=== PATIENT | male | born 1960 | race Caucasian/White ===

== ENCOUNTER 2016-06-08 09:13 | Inpatient (IN) | payer OTHER ==
[~2016-06-08] VITALS: Ht 188 cm; Wt 99.0 kg
[2016-06-08 09:14] VITALS: BP 168/98; PULSE 90; RESP 18; TEMP 97.8; O2SAT 93
[2016-06-08 09:40] LABS: BLOOD GAS BASE EXCESS -0.7 mmol/L (-2-2); BLOOD GAS CARBOXYHEMOGLOBIN 2.4 % (0-4); BLOOD GAS HCO3 23 mmol/L (22-26); BLOOD GAS METHEMOGLOBIN 1.8 % (0-2); BLOOD GAS O2 HGB SATURATION 92 % (90-100); BLOOD GAS OXYGEN CONTENT 21.6 Vol % (12.0-20.0); BLOOD GAS PCO2 35 mmHg (38-42); BLOOD GAS PO2 75 mmHG (61-120); BLOOD GAS TOTAL HGB 16.7 G/DL (12.0-16.0); CRITICAL VALUE NO; TEMP CORR TO 98.6
[2016-06-08 09:41] LABS: DRAW SITE RT RADIAL; NUMBER OF ARTERIAL PUNCTURES 1; OXYGEN DEVICE ROOM AIR; STAT YES; ULNAR PULSE PRESENT
[2016-06-08 09:48] LABS: AUTOMATED NEUTROPHIL # 11.1 TH/MM3 (1.8-7.7); BASOPHIL # 0.1 TH/MM3 (0-0.2); BASOPHIL % 0.4 % (0.0-2.0); EOSINOPHIL % 0.1 % (0.0-4.0); HEMATOCRIT 47.1 % (35.0-46.0); HEMO FLAGS DIFF FINAL; LYMPH % 16.2 % (9.0-44.0); LYMPHOCYTE # 2.3 TH/MM3 (1.0-4.8); MEAN CELL VOLUME 85.4 FL (80.0-100.0); MEAN CORPUSCULAR HEMOGLOBIN 28.7 PG (27.0-34.0); MEAN CORPUSCULAR HGB CONC 33.6 % (32.0-36.0); MONO % 6.6 % (0.0-8.0); NEUT % 76.7 % (16.0-70.0); PLATELET COUNT 318 TH/MM3 (150-450); RED BLOOD COUNT 5.52 MIL/MM3 (4.00-5.30); RED CELL DISTRIBUTION WIDTH 13.1 % (11.6-17.2); WHITE BLOOD COUNT 14.5 TH/MM3 (4.0-11.0)
[2016-06-08 09:51] LABS: BLOOD, URINE TRACE (NEG); COMMENT (UR) CULT NOT INDICATED; CULTURE IF INDICATED CULT NOT INDICATED; GLUCOSE,URINE NEG (NEG); HYALINE CAST, URINE 1 /lpf (RARE); KETONE, URINE 10 mg/dL (NEG); MUCUS URINE FEW /lpf (OCC); NITRITE,URINE NEG (NEG); PH, URINE 6.5 (5.0-8.5); URINE COLOR YELLOW (YELLW/STRAW)
[2016-06-08 10:12] LABS: BICARBONATE 28.1 MEQ/L (21.0-32.0); POTASSIUM 3.9 MEQ/L (3.5-5.1)
--- NOTE | 2016-06-08 13:14 | PD ---
HPI . suicide attempt and anxiety Chief Complaint: Psychiatric Symptoms Time Seen by Provider: 12:45 Travel History International Travel<30 days: No Contact w/Intl Traveler<30days: No Traveled to known affect area: No History of Present Illness HPI 56-year-old male with no significant past medical history here with severe bout of anxiety. Patient says in the past he has had mild anxiety but never as much as he has now. 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 Patient was somewhat overwhelmed as he felt he may be letting students down and the anxiety became overwhelming. He reports that he did not know how to use software, teach classes, or handle the class load. His anxiety was so overwhelming that patient decided he would attempt suicide by leaving his car running and stetting it up to make it look like he was charging his cell phone and fell asleep in his vehicle. Fortunately , in his suicide attempt, he decided that it was not worth taking his life and decided to seek medical help. At the time of examination patient denies any chest pain, shortness of breath, diaphoresis, nausea vomiting, abdominal pain, joint pain or any fatigue. PFSH Past Medical History Medical History: Denies Significant Hx Diabetes: No Patient Takes Glucophage: No Diminished Hearing: No Tetanus Vaccination: Unknown ?: Not Past Surgical History Surgical History: No Previous Surgery Social History Alcohol Use: Yes (OCCASIONAL) Tobacco Use: No Substance Use: Yes Allergies-Medications (Allergen,Severity, Reaction): Coded Allergies: No Known Allergies (Unverified , 06/08/16) Reported Meds & Prescriptions Reported Meds & Active Scripts Active No Active Prescriptions or Reported Medications Review of Systems General / Constitutional: No: Fever Eyes: No: Visual changes HENT: No: Headaches Cardiovascular: No: Chest Pain or Discomfort Respiratory: No: Shortness of Breath Gastrointestinal: No: Abdominal Pain Genitourinary: No: Dysuria Musculoskeletal: No: Pain Skin: No Rash Neurologic: No: Weakness Psychiatric: Positive: Anxiety, Suicidal Ideations, No: Depression Endocrine: No: Polydipsia Hematologic/Lymphatic: No: Easy Bruising Physical Exam Narrative GENERAL: AAO x 3, no acute distress, Well-nourished, well-developed patient. moderately anxious. SKIN: Warm and dry. No visible rashes or bruising. HEAD: Normocephalic and atraumatic. EYES: No scleral icterus. No injection or drainage. EOM intact ENT: No nasal drainage noted. Mucous membranes pink. Airway patent. NECK: Supple, trachea midline. No JVD. CARDIOVASCULAR: Regular rate and rhythm without murmurs, gallops, or rubs. RESPIRATORY: Breath sounds equal bilaterally. No accessory muscle use. No rhonchi or rales. GASTROINTESTINAL: Abdomen soft, non-tender, nondistended. EXTREMITIES: No cyanosis or edema. BACK: Nontender without obvious deformity. No CVA tenderness. PSYCH: AAO x 3, very anxious, coherent speech Data Data Last Documented VS Vital Signs Date Time Temp Pulse Resp B/P Pulse Ox O2 Delivery O2 Flow Rate FiO2 06/08/16 09:14 97.8 90 18 168/98 93 Room Air Orders Complete Blood Count With Diff (06/08/16 09:19) Basic Metabolic Panel (Bmp) (06/08/16 09:19) Urinalysis - C+S If Indicated (06/08/16 09:19) Arterial Blood Gas (Abg) (06/08/16 09:24) Drug Screen, Random Urine (06/08/16 09:24) Psych Screen (06/08/16 11:37) Labs Laboratory Tests Test 06/08/16 06/08/16 08:30 09:35 Urine Color YELLOW Urine Turbidity CLEAR Urine pH 6.5 Urine Specific [place] 1.036 Urine Protein 30 mg/dL Urine Glucose (UA) NEG mg/dL Urine Ketones 10 mg/dL Urine Occult Blood TRACE Urine Nitrite NEG Urine Bilirubin SMALL Urine Urobilinogen 4.0 MG/DL Urine Leukocyte Esterase NEG Urine RBC 2 /hpf Urine WBC 1 /hpf Urine Hyaline Casts 1 /lpf Urine Mucus FEW /lpf Microscopic Urinalysis Comment CULT NOT INDICATED White Blood Count 14.5 TH/MM3 Red Blood Count 5.52 MIL/MM3 Hemoglobin 15.8 GM/DL Hematocrit 47.1 % Mean Corpuscular Volume 85.4 FL Mean Corpuscular Hemoglobin 28.7 PG Mean Corpuscular Hemoglobin 33.6 % Concent Red Cell Distribution Width 13.1 % Platelet Count 318 TH/MM3 Mean Platelet Volume 8.3 FL Neutrophils (%) (Auto) 76.7 % Lymphocytes (%) (Auto) 16.2 % Monocytes (%) (Auto) 6.6 % Eosinophils (%) (Auto) 0.1 % Basophils (%) (Auto) 0.4 % Neutrophils # (Auto) 11.1 TH/MM3 Lymphocytes # (Auto) 2.3 TH/MM3 Monocytes # (Auto) 1.0 TH/MM3 Eosinophils # (Auto) 0.0 TH/MM3 Basophils # (Auto) 0.1 TH/MM3 CBC Comment DIFF FINAL Differential Comment Blood Gas Puncture Site RT RADIAL Blood Gas Patient Temperature 98.6 Blood Gas HCO3 23 mmol/L Blood Gas Base Excess -0.7 mmol/L Blood Gas Oxygen Saturation 92 % Arterial Blood pH 7.44 Arterial Blood Partial 35 mmHg Pressure CO2 Arterial Blood Partial 75 mmHG Pressure O2 Arterial Blood Oxygen Content 21.6 Vol % Arterial Blood 2.4 % Carboxyhemoglobin Arterial Blood Methemoglobin 1.8 % Blood Gas Hemoglobin 16.7 G/DL Oxygen Delivery Device ROOM AIR Sodium Level 139 MEQ/L Potassium Level 3.9 MEQ/L Chloride Level 104 MEQ/L Carbon Dioxide Level 28.1 MEQ/L Anion Gap 7 MEQ/L Blood Urea Nitrogen 11 MG/DL Creatinine 1.47 MG/DL Estimat Glomerular Filtration 37 ML/MIN Rate Random Glucose 101 MG/DL Calcium Level 9.1 MG/DL MDM Medical Decision Making Medical Screen Exam Complete: Yes Emergency Medical Condition: Yes Medical Record Reviewed: Yes Differential Diagnosis suicide attempt, suicide ideation, JESE, panic attack, Narrative Course 56-year-old male with no significant past medical history here with severe bout of anxiety. Patient says in the past he has had mild anxiety but never as much as he has now. 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 Patient was somewhat overwhelmed as he felt he may be letting students down and the anxiety became overwhelming. He reports that he did not know how to use software, teach classes, or handle the class load. His anxiety was so overwhelming that patient decided he would attempt suicide by leaving his car running and stetting it up to make it look like he was charging his cell phone and fell asleep in his vehicle. Fortunately , in his suicide attempt, he decided that it was not worth taking his life and decided to seek medical help. At the time of examination patient denies any chest pain, shortness of breath, diaphoresis, nausea vomiting, abdominal pain, joint pain or any fatigue. Seen and examined. Case discussed with Dr. Mccracken. Recommend further psychiatric care. Labs are unremarkable. Exam is unremarkable. No further medical care anticipated. Diagnosis Primary Impression: Suicide attempt Additional Impression: Anxiety Scripts No Active Prescriptions or Reported Meds Condition: Stable Norma Goncalves Jun 08, 2016 13:14
[2016-06-08 16:12] VITALS: BP 144/79; PULSE 100; RESP 17; O2SAT 97
--- NOTE | 2016-06-08 17:39 | PD ---
History of Present Illness Chief Complaint: Psychiatric Symptoms Time Seen by Provider: 17:15 Travel History International Travel<30 Days: No Contact w/Intl Traveler<30days: No Known affected area: No Legal Status Legal Status: Moore Act Moore Act Signed By: Oscar Act Comment: CASSIE Heredia History of Present Illness: History of Present Illness H 56-year-old male with no previous psychiatric history presents to ED with complaint of anxiety. 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 Patient was somewhat overwhelmed as he felt he may be letting students down and the anxiety became overwhelming.The patient decided he would attempt suicide by leaving his car running and stetting it up to make it look like he was charging his cell phone and fell asleep in his vehicle. He then had a change of mind and called for medical attention. Seen. record reviewed. Patient is alert and oriented. appears depressed. he is requesting to be discharged as he wants to be able to use his computer. He still endorses feeling depressed as well as reports suicidal ideation. He has never received treatment for his anxiety or depression. At this time the patient presents a risk to self PFSH Past Medical History Medical History: Denies Significant Hx Diabetes: No Patient Takes Glucophage: No Diminished Hearing: No Tetanus Vaccination: Unknown ?: Not Past Surgical History Surgical History: No Previous Surgery Psychiatric History Psychiatric History Hx Psychiatric Treatment: pT DENIED History of Inpatient Treatment: No Guns or firearms in home: No Social History single male. Lives by self Hx Alcohol Use: Yes (OCCASIONAL) Hx Tobacco Use: No Hx Substance Use: Yes Substance Use Type: Alcohol, Marijuana Other Substances Used: oCCASIONALLY Hx of Substance Use Treatment: No Allergies-Medications (Allergen,Severity, Reaction): Coded Allergies: No Known Allergies (Unverified , 06/08/16) Reported Meds & Prescriptions Reported Meds & Active Scripts Active No Active Prescriptions or Reported Medications Review of Systems Except as stated in HPI: all other systems reviewed are Neg Psychiatric: COMPLAINS OF: Anxiety, Depression, Suicidal Ideation Exam Alert: Yes [place]: Person (ox4) Mood: Anxious, Depressed Speech: Clear, Logical Eye Contact: Normal Memory Intact: Comment (no impairmetn) Hallucinations: Other (negative) Suicidal: Ideation (vague at this time) Homicidal: Ideation (deneis) Insight/Judgement poor. poor MDM Medical Decision Making Medical Record Reviewed: Yes Assessment/Plan Covert to BA as patient is not willing to accept hospitalization at this time. I have no previous history and I am unable to obtain collateral information to assure this patient is safe to discharge. . Recommend admission for further evaluation, initiation of tx. and to maintain safety. Orders Complete Blood Count With Diff (06/08/16 09:19) Basic Metabolic Panel (Bmp) (06/08/16 09:19) Urinalysis - C+S If Indicated (06/08/16 09:19) Arterial Blood Gas (Abg) (06/08/16 09:24) Drug Screen, Random Urine (06/08/16 09:24) Psych Screen (06/08/16 11:37) Admit Order (Ed Use Only) (06/08/16 ) Admit To Inpatient Psych (06/08/16 ) Code Status (06/08/16 17:33) Vital Signs (Adult) SKY.Q12H.E (06/08/16 17:33) Activity Oob Ad Alice (06/08/16 17:33) Level Of Observation (Psych) (06/08/16 17:33) Acetaminophen (Tylenol) (06/08/16 17:45) Magnesium Hydroxide Liq (Milk Of Magnesi (06/08/16 17:45) Al-Mag Hy-Si 40-40-4 Mg/Ml Liq (Mag-Al P (06/08/16 17:45) Basic Metabolic Panel (Bmp) (06/09/16 06:00) Lipid Profile (06/09/16 06:00) Hemoglobin (Hgb) A1c (06/09/16 06:00) Results Vital Signs Date Time Temp Pulse Resp B/P Pulse Ox O2 Delivery O2 Flow Rate FiO2 06/08/16 16:12 100 17 144/79 97 06/08/16 09:14 97.8 90 18 168/98 93 Room Air Laboratory Tests Test 06/08/16 06/08/16 08:30 09:35 Urine Color YELLOW Urine Turbidity CLEAR Urine pH 6.5 Urine Specific [place] 1.036 Urine Protein 30 Urine Glucose (UA) NEG Urine Ketones 10 Urine Occult Blood TRACE Urine Nitrite NEG Urine Bilirubin SMALL Urine Urobilinogen 4.0 Urine Leukocyte Esterase NEG Urine RBC 2 Urine WBC 1 Urine Hyaline Casts 1 Urine Mucus FEW Microscopic Urinalysis Comment CULT NOT INDICATED White Blood Count 14.5 Red Blood Count 5.52 Hemoglobin 15.8 Hematocrit 47.1 Mean Corpuscular Volume 85.4 Mean Corpuscular Hemoglobin 28.7 Mean Corpuscular Hemoglobin 33.6 Concent Red Cell Distribution Width 13.1 Platelet Count 318 Mean Platelet Volume 8.3 Neutrophils (%) (Auto) 76.7 Lymphocytes (%) (Auto) 16.2 Monocytes (%) (Auto) 6.6 Eosinophils (%) (Auto) 0.1 Basophils (%) (Auto) 0.4 Neutrophils # (Auto) 11.1 Lymphocytes # (Auto) 2.3 Monocytes # (Auto) 1.0 Eosinophils # (Auto) 0.0 Basophils # (Auto) 0.1 CBC Comment DIFF FINAL Differential Comment Blood Gas Puncture Site RT RADIAL Blood Gas Patient Temperature 98.6 Blood Gas HCO3 23 Blood Gas Base Excess -0.7 Blood Gas Oxygen Saturation 92 Arterial Blood pH 7.44 Arterial Blood Partial 35 Pressure CO2 Arterial Blood Partial 75 Pressure O2 Arterial Blood Oxygen Content 21.6 Arterial Blood 2.4 Carboxyhemoglobin Arterial Blood Methemoglobin 1.8 Blood Gas Hemoglobin 16.7 Oxygen Delivery Device ROOM AIR Sodium Level 139 Potassium Level 3.9 Chloride Level 104 Carbon Dioxide Level 28.1 Anion Gap 7 Blood Urea Nitrogen 11 Creatinine 1.47 Estimat Glomerular Filtration 37 Rate Random Glucose 101 Calcium Level 9.1 Diagnosis Primary Impression: Suicide attempt Additional Impressions: Anxiety Marijuana abuse, continuous Admitting Information Admitting Physician Requests: Admit (Dr. Olivas) Prescriptions No Active Prescriptions or Reported Meds Condition: Stable Problem Qualifiers Alexandra Wade Jun 08, 2016 17:39
[2016-06-08] MEDS ORDERED: ACETAMINOPHEN 325 MG TAB PO PRN (17:45)
[2016-06-08] MEDS ORDERED: MAGNESIUM HYDROXIDE SUSP 30 ML CUP PO PRN (17:45)
[2016-06-08] MEDS ORDERED: ALUMINUM/MAGNESIUM/SIMETH 30 ML CUP PO PRN (17:45)
[2016-06-08 18:29] VITALS: BP 163/89; PULSE 90; RESP 17; TEMP 98; O2SAT 96
[2016-06-08 19:40] VITALS: BP 139/87; PULSE 76; RESP 18; O2SAT 97
[2016-06-08 20:05] VITALS: BP 163/95; PULSE 85; RESP 18; TEMP 98.7; O2SAT 95
[2016-06-09 06:07] LABS: AMPHETAMINE, URINE NEG (NEG); BARBITURATES, URINE NEG (NEG); COCAINE, URINE NEG (NEG)
[2016-06-09 06:13] VITALS: BP 143/86; PULSE 90; RESP 18; TEMP 97.7; O2SAT 97
[2016-06-09 09:06] LABS: ANION GAP 10 MEQ/L (5-15); BICARBONATE 23.7 MEQ/L (21.0-32.0); BLOOD UREA NITROGEN 13 MG/DL (7-18); CHLORIDE 105 MEQ/L (98-107); GLOMERULAR FILTRATION RATE 54 ML/MIN (>89); POTASSIUM 4.2 MEQ/L (3.5-5.1); SODIUM (NA) 139 MEQ/L (136-145)
[2016-06-09 09:08] LABS: HDL CHOLESTEROL 48.8 MG/DL (40.0-60.0); LDL CHOLESTEROL 135 MG/DL (0-99)
[2016-06-09] MEDS ORDERED: hydrOXYzine HCL 50 MG TAB PO PRN (11:00)
--- NOTE | 2016-06-09 11:16 | HHI.HP ---
Provisional Diagnosis Admission Date Jun 08, 2016 at 17:37 [place] I. Major depressive disorder severe recurrent without psychosis F 33.2, marijuana abuse F 12.10 Certification of Person's Competence To Provide Express and Informed Consent I have personally examined Ashkan Magallon , a person being served at [facility] on, Jun 09, 2016 11:00. Express and informed consent means consent voluntarily given in writing, by a competent person, after sufficient explanation and disclosure of the subject matter involved to enable the person to make a knowing and willful decision without any element of force, fraud, deceit, duress, or other form of constraint or coercion. This person is 18 years of age or older, is not now known to be incompetent to consent to treatment with a guardian advocate, and does not have a health care surrogate or proxy currently making medical treatment decisions. I have found this person to be one of the following: [x] Competent to provide express and informed consent, as defined above, for voluntary admission to this facility and is competent to provide express and informed consent for treatment. He/she has the consistent capacity to make well reasoned, willful, and knowing decisions concerning his or her medical or mental health treatment. The person fully and consistently understands the purpose of the admission for examination/placement and is fully capable of personally exercising all rights assured under [place] Incompetent to provide express and informed consent to voluntary admission, and this is incompetent to provide express and informed consent to treatment. The person must be transferred to involuntary status and a petition for a guardian advocate filed with the Circuit Court. [] Refusing to provide express and informed consent to voluntary admission but is competent to provide express and informed consent for treatment. The person must be discharged or transferred to involuntary status. Form shall be completed within 24 hours of a person's arrival at the receiving facility and filed in the clinical record of each person: 1. Admitted on a voluntary basis 2. Permitted to provide express and informed consent to his/her own treatment 3. Allowed to transfer from involuntary to voluntary status 4. Prior to permitting a person to consent to his or her own treatment after having been previously found incompetent to consent to treatment. History of Present Illness Capacity: Has Capacity HPI Patient is a 56 to white male who comes to the emergency department [facility] a history of suicide attempt by carbon monoxide poisoning was Moore acted by our psychiatric screener Alexandra MATTHEWS dated June 08 5 PM stating depressive disorder adjustment of depressed mood patient turned [place] on a garage wanted to "go to sleep and not wake up" patient seen screened in ED urine toxicology positive for marijuana. At the present time patient sitting quietly in his room family practice resident Nila and nurse Leatha present throughout session. 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 He has become more and more depressed with this he describes both significant initial and mid insomnia, a.m. anergy, decreased appetite with weight loss sad mood, decreased concentration and attention some increased irritability. He does deny voices or visions with this he does acknowledges suicide attempt with this. He does acknowledge chronic continuous use of marijuana starting as a teenager stating it helps him remain calm to changes anxiety the not is limited to 2 or 3 small hits per day. Though he does have some insight that this is not a room treatment for his problems. Patient does give a history also of past significant alcohol use stating he has had 2 or 3 DUIs 20+ years ago denying detox or rehabilitation or frequent alcohol use at this time. He does acknowledge multiple prior suicide attempts initially at about 13 years of age when he brought rubbing alcohol to school with attempts to mix it in his milk. He does deny any prior psychiatric hospitalizations his psychotropic medications he does deny any voices or visions with this. He does acknowledges continued suicidality at this time. Patient denies any history mental illness with his family of origin though is some alcohol use with his family his father is alive mother . He has sibship of 3 he is the middle child with a brother and a sister. He does have appears to be of okay relationship with them. He also denies any physical or sexual abuse as a child or an adult. Denies any significant medical issues. At the present time patient does meet criteria for acute psychiatric hospitalization. I feel he does have capacity to participate in his treatment and to participate in his admission thus I will lift the Moore act allow the patient to sign voluntary. We did discuss medications we'll start the gentleman on Remeron 15 mg at at bedtime and Abilify 10 mg in the morning. Hopeless be fairly short stay and he can return to his home follow-up with [facility] outpatient psychiatric treatment Review of Systems Except as stated in HPI: all other systems reviewed are Neg Past Psych History Psychological trauma history Patient denies any physical or sexual abuse Violence risk - others (6 mos) Low Violence risk - self (6 mos) Patient attempted suicide with this admission, long history of very suicide attempts over his life since 13 years of age Substance Abuse History Drugs/Alcohol past 12 months Patient chronic marijuana user, a past history of moderate plus alcohol use rare use now Past Family Social History Coded Allergies: No Known Allergies (Unverified , 06/08/16) Past Medical History Patient denies any significant medical history No Active Prescriptions or Reported Meds Current Medications Medications (Trade) Dose Ordered Sig/Faustina Route Start Time Stop Time Status Last Admin (Tylenol) 650 mg Q4H PRN PO 06/08/16 17:45 (Milk Of Magnesia Liq) 30 ml DAILY PRN PO 06/08/16 17:45 (Mag-Al Plus Susp Liq) 30 ml Q6H PRN PO 06/08/16 17:45 (Benadryl) 50 mg HS PRN PO 06/09/16 11:00 UNV (Atarax) 50 mg Q6H PRN PO 06/09/16 11:00 UNV Family History No history mental illness in the family that he said his parents did use alcohol Social History Patient lives alone is has no children as a pet cat Patient's Strengths (min. 2) Patient verbal cooperative it waxes health care Physical Exam Patient seen screened in ED exam reviewed and agreed with vital signs blood pressure 143/86 pulse 90 respirations 18 Vital Signs Vital Signs Date Time Temp Pulse Resp B/P Pulse Ox O2 Delivery O2 Flow Rate FiO2 06/09/16 06:13 97.7 90 18 143/86 97 06/08/16 19:40 Room Air Mental Status Examination Alert oriented white male appears stated age clean neatly dressed sitting calmly in his room with poor to fair eye contact staff present as mentioned above Appearance Clean neatly Speech: Unremarkable Orientation: x3 Memory: Unremarkable Thought Process: Logical, Organized Thought Content: Unremarkable Hallucination Type: None Attention and Concentration: Good Suicidal Ideation: Yes Previous Suicide Attempts: Yes Homicidal Ideation: No Previous Homicide Attempts: No Insight: Fair Judgement: Poor Affect: Other (decreased range and intensity) Mood: Sad (and restricted) Motor Activity: Normal gait Assessment & Plan Problem List: (1) Major depressive disorder, recurrent severe without psychotic features ICD Code: F33.2 (2) Marijuana abuse, continuous ICD Code: F12.10 Assessment & Plan Estimated LOS 5-7: days patient remains depressed and vague suicidal ideation however he does have the capacity to sign voluntary thus I'll lift the Moore act allow her sign voluntary will continue him on close observation, will start him on Remeron 15 mg at at bedtime Abilify 10 mg in the morning Discharge Planning To be determined Request HC Surrog/Guard Advoc?: No Juwan Olivas MD Jun 09, 2016 11:16
[2016-06-09] MEDS: ARIPiprazole 10 MG TAB PO SCH (12:43)
[2016-06-09 16:01] LABS: HEMOGLOBIN A1a 1.1 %; HEMOGLOBIN A1b 1.5 %; HEMOGLOBIN Ao 85.7 %; HEMOGLOBIN LA1C 1.9 %; HEMOGLOBIN P3 3.7 %
[2016-06-09 18:48] VITALS: BP 143/86; PULSE 90; RESP 17; TEMP 97.5
[2016-06-09] MEDS: MIRTAZAPINE 15 MG TAB PO SCH (21:00)
[2016-06-10 05:06] VITALS: BP 132/88; PULSE 100; RESP 18; TEMP 99.2
[2016-06-10] MEDS: ARIPiprazole 10 MG TAB PO SCH (08:23)
--- NOTE | 2016-06-10 09:33 | HHI.PYPN ---
Subjective Remarks Patient seen in [place] with nurse Lele, chart review, patient states sleep somewhat better last night them prior, continues depressed. Though it this time he does somewhat obtusely denies suicidality. There is still some irritability and some indecisiveness related to his employment and return to that environment. Patient compliant medications. For now continue treatment Review of Systems Except as stated in HPI: all other systems reviewed are Neg Objective Alert: Yes [place]: Person (ox4) Mood: Anxious, Depressed Affect: Restricted Memory Intact: Comment (no impairmetn) Hallucinations: Other (negative) Delusions: No Delusion Type: Other (mildly vigilant) Suicidal: Ideation (vague at this time) Homicidal: Ideation (deneis) Insight/Judgement Poor Vitals/IOs Vital Signs Date Time Temp Pulse Resp B/P Pulse Ox O2 Delivery O2 Flow Rate FiO2 06/10/16 05:06 99.2 100 18 132/88 06/09/16 06:13 97 06/08/16 19:40 Room Air Assessment & Plan Problem List: (1) Major depressive disorder, recurrent severe without psychotic features ICD Code: F33.2 (2) Marijuana abuse, continuous ICD Code: F12.10 Assessment & Plan Estimated LOS: days patient continues depressed though today somewhat denying suicidality, compliant medications. For now continue treatment Justification for Cont. Inpt. At this time patient was really decompensate if placed in a lower level of care Discharge Planning To be determined Request HC Surrog/Guard Advoc?: No Juwan Olivas MD Jun 10, 2016 09:33
[2016-06-10 18:20] VITALS: BP 144/78; PULSE 95; RESP 19; TEMP 98.3; O2SAT 99
[2016-06-10] MEDS: MIRTAZAPINE 15 MG TAB PO SCH (21:16)
[2016-06-10] MEDS: diphenhydrAMINE HCL 50 MG CAP PO PRN (21:41)
[2016-06-11 05:01] VITALS: BP 139/93; PULSE 84; RESP 18; TEMP 98.3; O2SAT 96
[2016-06-11] MEDS: ARIPiprazole 10 MG TAB PO SCH (09:01)
--- NOTE | 2016-06-11 09:54 | HHI.PYPN ---
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 Patient calm cooperative stating the "dark cloud" that he felt yesterday is slowly lifting. He said he slept better his appetite is better. He does denies suicidality at this time. There is still some hesitation a question about his ability to do his job or his desire to do his job. For now continue treatment no change consider discharge first part of next week patient continues to show improvement Review of Systems Except as stated in HPI: all other systems reviewed are Neg Objective Alert: Yes [place]: Person (ox4) Mood: Anxious, Depressed Affect: Restricted Memory Intact: Comment (no impairmetn) Hallucinations: Other (negative) Delusions: No Delusion Type: Other (mildly vigilant) Suicidal: Ideation (vague at this time) Homicidal: Ideation (deneis) Insight/Judgement Poor Vitals/IOs Vital Signs Date Time Temp Pulse Resp B/P Pulse Ox O2 Delivery O2 Flow Rate FiO2 06/11/16 05:01 98.3 84 18 139/93 96 06/08/16 19:40 Room Air Assessment & Plan Problem List: (1) Major depressive disorder, recurrent severe without psychotic features ICD Code: F33.2 (2) Marijuana abuse, continuous ICD Code: F12.10 Assessment & Plan Estimated LOS: days patient's depression is slowly lifting, suicidality his diminished. Compliant with medications. Patient now starting to process his work situation issues. For now continue treatment Justification for Cont. Inpt. With this time patient will decompensate the placed in a lower level of care Discharge Planning To be determined Request HC Surrog/Guard Advoc?: No Juwan Olivas MD Jun 11, 2016 09:54
[2016-06-11 18:43] VITALS: BP 156/88; PULSE 108; RESP 18; TEMP 97.7; O2SAT 95
[2016-06-11] MEDS: MIRTAZAPINE 15 MG TAB PO SCH (21:04)
[2016-06-11] MEDS: diphenhydrAMINE HCL 50 MG CAP PO PRN (22:33)
[2016-06-12 05:47] VITALS: BP 125/79; PULSE 92; RESP 16; TEMP 97; O2SAT 96
[2016-06-12] MEDS: ARIPiprazole 10 MG TAB PO SCH (09:27)
--- NOTE | 2016-06-12 15:10 | HHI.PYPN ---
Subjective Remarks Pt seen and discussed with staff. He reports that mood is improved. No SI/HI. He is tolerating medications without side effects. He is attending therapeutic activities in milieu. No psychosis. Objective Alert: Yes [place]: Person (ox4) Mood: Calm Affect: Restricted Memory Intact: Comment (no impairmetn) Hallucinations: Other (negative) Delusions: No Delusion Type: Other (mildly vigilant) Suicidal: Ideation (denies) Homicidal: Ideation (denies) Insight/Judgement fair Vitals/IOs Vital Signs Date Time Temp Pulse Resp B/P Pulse Ox O2 Delivery O2 Flow Rate FiO2 06/12/16 05:47 97.0 92 16 125/79 96 06/08/16 19:40 Room Air Intake and Output 06/11/16 06/11/16 06/12/16 08:00 16:00 00:00 Intake Total 480 ml Balance 480 ml Assessment & Plan Problem List: (1) Major depressive disorder, recurrent severe without psychotic features ICD Code: F33.2 (2) Marijuana abuse, continuous ICD Code: F12.10 Assessment & Plan Continue current tx plan as pt improving. Estimated LOS: days Justification for Cont. Inpt. monitoring for impairments in safety Request HC Surrog/Guard Advoc?: Марина Quiroga MD Jun 12, 2016 15:10
[2016-06-12 18:43] VITALS: BP 144/92; PULSE 105; RESP 17; TEMP 98.4; O2SAT 96
[2016-06-12] MEDS: MIRTAZAPINE 15 MG TAB PO SCH (21:08)
[2016-06-12] MEDS: diphenhydrAMINE HCL 50 MG CAP PO PRN (23:56)
[2016-06-13 05:24] VITALS: BP 119/77; PULSE 82; RESP 16; TEMP 97
[2016-06-13] MEDS: ARIPiprazole 10 MG TAB PO SCH (09:16)
--- NOTE | 2016-06-13 15:52 | HHI.PYPN ---
Subjective Remarks Pt seen and discussed with staff. He reports that mood continues to improve and he denies SI/HI. He is compliant with medications and tolerating them without side effects. He has been participating in all unit activities. Objective Alert: Yes [place]: Person, Place, Date, Situation Mood: Calm Affect: Restricted Memory Intact: Comment (no impairmetn) Hallucinations: Other (negative) Delusions: No Delusion Type: Other (mildly vigilant) Suicidal: Ideation (denies) Homicidal: Ideation (denies) Insight/Judgement good Vitals/IOs Vital Signs Date Time Temp Pulse Resp B/P Pulse Ox O2 Delivery O2 Flow Rate FiO2 06/13/16 05:24 97.0 82 16 119/77 06/12/16 18:43 96 Assessment & Plan Problem List: (1) Major depressive disorder, recurrent severe without psychotic features ICD Code: F33.2 (2) Marijuana abuse, continuous ICD Code: F12.10 Assessment & Plan Continue current tx plan. Pt improving. Pt will need referral to psychiatrist upon discharge as does not have current provider. Estimated LOS: days Justification for Cont. Inpt. risk of decompensation. Request HC Surrog/Guard Advoc?: No Марина Andrade MD Jun 13, 2016 15:52
[2016-06-13 18:22] VITALS: BP 137/83; PULSE 92; RESP 22; TEMP 97.1; O2SAT 98
[2016-06-13] MEDS: MIRTAZAPINE 15 MG TAB PO SCH (20:57)
[2016-06-14 04:48] VITALS: BP 137/88; PULSE 92; RESP 18; TEMP 98; O2SAT 99
[2016-06-14] MEDS: ARIPiprazole 10 MG TAB PO SCH (09:09)
[2016-06-14] MEDS ORDERED: ARIP1TAB12 PO (12:46)
[2016-06-14] MEDS ORDERED: MIRTA15 PO (12:46)
--- NOTE | 2016-06-14 12:50 | HHI.DS ---
Psychiatry Discharge Summary Inpatient Psychiatric care?: Yes Advance Directive: No Reason Not Provided: REFUSED Mental Health AdvanceDirective: No Health Care Proxy: No Admission Admission Date Jun 08, 2016 at 17:37 Admission Diagnosis: (1) Major depressive disorder, recurrent severe without psychotic features ICD Code: F33.2 (2) Marijuana abuse, continuous ICD Code: F12.10 Brief History Patient is a 56 to white male who comes to the emergency department [facility] a history of suicide attempt by carbon monoxide poisoning was Moore acted by our psychiatric screener lAexandra MATTHEWS dated June 08 5 PM stating depressive disorder adjustment of depressed mood patient turned [place] on a garage wanted to "go to sleep and not wake up" patient seen screened in ED urine toxicology positive for marijuana. At the present time patient sitting quietly in his room family practice resident Nila and nurse Leatha present throughout session. 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 He has become more and more depressed with this he describes both significant initial and mid insomnia, a.m. anergy, decreased appetite with weight loss sad mood, decreased concentration and attention some increased irritability. He does deny voices or visions with this he does acknowledges suicide attempt with this. He does acknowledge chronic continuous use of marijuana starting as a teenager stating it helps him remain calm to changes anxiety the not is limited to 2 or 3 small hits per day. Though he does have some insight that this is not a room treatment for his problems. Patient does give a history also of past significant alcohol use stating he has had 2 or 3 DUIs 20+ years ago denying detox or rehabilitation or frequent alcohol use at this time. He does acknowledge multiple prior suicide attempts initially at about 13 years of age when he brought rubbing alcohol to school with attempts to mix it in his milk. He does deny any prior psychiatric hospitalizations his psychotropic medications he does deny any voices or visions with this. He does acknowledges continued suicidality at this time. Patient denies any history mental illness with his family of origin though is some alcohol use with his family his father is alive mother . He has sibship of 3 he is the middle child with a brother and a sister. He does have appears to be of okay relationship with them. He also denies any physical or sexual abuse as a child or an adult. Denies any significant medical issues. At the present time patient does meet criteria for acute psychiatric hospitalization. I feel he does have capacity to participate in his treatment and to participate in his admission thus I will lift the Moore act allow the patient to sign voluntary. We did discuss medications we'll start the gentleman on Remeron 15 mg at at bedtime and Abilify 10 mg in the morning. Hopeless be fairly short stay and he can return to his home follow-up with [facility] outpatient psychiatric treatment Tobacco Use In Past 30 Days: No Tobacco Past 30 Days Alcohol Use: 2-4 Times Per Month Hospital Course Patient showed cooperation with medication milieu from admission, his suicidal ideation gradually resolved over the weekend, he showed compliance with medication. Met with patient today with treatment team patient's calm cooperative now denies suicidality homicidality voices or visions feels like he has been able to process some of the stressors related to his new position within the school system. And he feels ready to adjust and work with that. He does wish discharge today. At the present time patient appears to met maximum benefit of this hospitalization thus will be discharged today to himself Rx 1 month, follow-up [facility] outpatient psychiatric services and counseling, also recommendation to abstain from use of marijuana Results Blood Pressure 137 / 88 Vital Signs Date Time Temp Pulse Resp B/P Pulse Ox O2 Delivery O2 Flow Rate FiO2 06/14/16 04:48 98.0 92 18 137/88 99 Urine toxicology positive for marijuana Summary of Procedures None done Pending results at discharge: No Medications # of Antipsychotic meds at D/C: 1 Approp Antipsych med options 1 - Minimum of three failed multiple trials of monotherapy. 2 - Documented plan to taper to monotherapy due to previous use of multiple meds OR cross-taper in progress at D/C. 3 - Documentation of augmentation of Clozapine. 4 - Justification other than those listed in allowable values 1-3, document here : Discharge Discharge Date: Jun 14, 2016 Discharge Diagnosis: (1) Marijuana abuse, continuous Diagnosis: Secondary ICD Code: F12.10 (2) Major depressive disorder, recurrent severe without psychotic features Diagnosis: Principal ICD Code: F33.2 Mental Status Exam at Disch Alert oriented white male calm cooperative, he is normal active, mood is euthymic with good range intensity of its affect, speech rate and rhythm within normal limits no formal thought disorders, daughter to visual hallucinations no delusions noted insight and judgment is fair cognition grossly intact Pt Condition on Discharge: Stable Discharge Disposition: Discharge Home Discharge Instructions Diet Instructions: As Tolerated, No Restrictions Activities you can perform: Regular-No Restrictions Scheduled Appointment: [facility] Appointment Date: Jun 22, 2016 Appointment Time: 10:00 a.m. Discharge Time > 30 minutes Discharge/Advance Care Plan Health Problems: (1) Major depressive disorder, recurrent severe without psychotic features (2) Marijuana abuse, continuous Goals to promote your health * To prevent worsening of your condition and complications * To maintain your health at the optimal level Directions to meet your goals Take your medications as prescribed Follow your dietary instruction Follow activity as directed Keep your appointments as scheduled Take your immunizations and boosters as scheduled If your symptoms worsen call your PCP, if no PCP go to Urgent Care Center or Emergency Room For 15/11 questions related to your inpatient stay or results of tests pending at discharge, please contact Dr. Juwan Olivas at Smoking is Dangerous to Your Health. Avoid second hand smoking Juwan Olivas MD Jun 14, 2016 12:50
== END 2016-06-14 13:55 | disposition home or self-care (01) | DRG 885 ==
LOC: NEPJ 09:13 → EDSEX 17:37 → NEDA 17:37 → H260 20:00
PROVIDERS: ADMIT Psychiatry & Neurology Psychiatry; ATTEND Psychiatry & Neurology Psychiatry
DX: F33.2 Major depressive disorder, recurrent severe without psychotic features (principal); F12.10 Cannabis abuse, uncomplicated
CPT/HCPCS: 36600; 80048; 80061; 80307; 81001; 82805; 83036; 85025; 99284; Q0163